=== PATIENT | female | born 1940 | race Caucasian/White ===

== ENCOUNTER → 2022-03-22 | Outpatient (CLI) | payer BC ==
[~2022-03-22] MED LIST: ACET325 PO; AMLODIPINE BESYL5 MG; BUME1 PO; DULOXETINE HCL60 M1 PO; ENBREL50 MG/1 M2 SQ; ESTRADIOL 2 MG; EUTHYROX100 MC1; EUTHYROX100 MCG PO; FOLIC ACID; FUROSEMIDE20 MG PO; GABA100 PO; GABAPENTIN CAP 100; IPRAT-ALBUT 0.5-3 ML INH; JANTOVEN2 MG PO; Klor-Con 1010 MEQ; LANOXIN125 MCG PO; LOSA25 PO; METO50ER PO; METOPROL SUC TAB 50M; Methotrexate2.5 MG PO; OXYCODONE-ACET1 EAC2 PO; POTA10T PO; Prednisone10 MG PO
[2022-03-22 15:22] LABS: BASOPHILS ABSOLUTE AUTO 0.13 K/mm3 (0.00-0.23); BASOPHILS PERCENT AUTO 1 % (0-2); EOSINOPHILS ABSOLUTE AUTO 0.36 K/mm3 (0.00-0.68); EOSINOPHILS PERCENT AUTO 3 % (0-6); Hematocrit 40.5 % (33.0-51.0); Hemoglobin 13.8 g/dL (11.5-16.0); IMMATURE GRAN ABSOLUTE AUTO 0.36 K/mm3 (0.00-0.10); IMMATURE GRAN PERCENT AUTO 3 % (0-1); LYMPHOCYTES ABSOLUTE AUTO 2.69 K/mm3 (0.84-5.20); LYMPHOCYTES PERCENT AUTO 21 % (21-46); MONOCYTES ABSOLUTE AUTO 1.12 K/mm3 (0.16-1.47); MONOCYTES PERCENT AUTO 9 % (4-13); Mean Corpuscular HGB 36.5 pg (26.0-34.0); Mean Corpuscular HGB Conc 34.1 g/dL (31.5-36.5); Mean Corpuscular Volume 107 fL (80-100); Mean Platelet Volume 11.2 fL (9.1-12.4); NEUTROPHILS ABSOLUTE AUTO 8.25 K/mm3 (1.96-9.15); NEUTROPHILS PERCENT AUTO 64 % (41-73); Platelet Count 262 K/mm3 (150-400); RDW Coefficient Variation 13.1 % (11.7-14.2); Red Blood Cell Count 3.78 M/mm3 (3.80-5.20); White Blood Cell Count 12.91 K/mm3 (4.00-11.30)
[2022-03-22 15:53] LABS: Albumin, Blood 3.1 g/dL (3.4-5.0); Albumin/Globulin Ratio 0.9 (0.8-1.8); Bilirubin, Total 0.5 mg/dL (0.1-1.0); Bun/Creatinine Ratio 20.2 (12.0-20.0); Calcium, Blood 8.9 mg/dL (8.5-10.1); Creatinine, Blood 0.84 mg/dL (0.40-1.00); Globulin, Blood 3.6 g/dL (2.2-4.0); Potassium, Blood 4.7 mmol/L (3.5-5.5); Total Protein, Blood 6.7 g/dL (6.4-8.2)
[2022-03-23 07:14] LABS: HBSAG SCREEN Negative (Negative); HCV AB 0.1 (0.0-0.9); HEP B CORE AB, TOT Negative (Negative)
== END | disposition home or self-care (01) ==
LOC: LAB SHORT 12:00 → LAB 12:00
PROVIDERS: Internal Medicine Rheumatology
DX: L40.50 Arthropathic psoriasis, unspecified (principal)
CPT/HCPCS: 80053; 85025; 85651

== ENCOUNTER 2023-08-29 15:52 | Inpatient (IN) | payer MEDICARE, BC, OTHER ==
[~2023-08-29] VITALS: Ht 157.5 cm; Wt 60.3 kg
[2023-08-29 16:23] LABS: BASOPHILS ABSOLUTE AUTO 0.08 K/mm3 (0.00-0.23); BASOPHILS PERCENT AUTO 1 % (0-2); EOSINOPHILS ABSOLUTE AUTO 0.09 K/mm3 (0.00-0.68); EOSINOPHILS PERCENT AUTO 1 % (0-6); Hematocrit 40.4 % (33.0-51.0); Hemoglobin 13.7 g/dL (11.5-16.0); IMMATURE GRAN ABSOLUTE AUTO 0.14 K/mm3 (0.00-0.10); IMMATURE GRAN PERCENT AUTO 1 % (0-1); LYMPHOCYTES ABSOLUTE AUTO 2.08 K/mm3 (0.84-5.20); LYMPHOCYTES PERCENT AUTO 19 % (21-46); MONOCYTES ABSOLUTE AUTO 0.99 K/mm3 (0.16-1.47); MONOCYTES PERCENT AUTO 9 % (4-13); Mean Corpuscular HGB 33.3 pg (26.0-34.0); Mean Corpuscular HGB Conc 33.9 g/dL (31.5-36.5); Mean Corpuscular Volume 98 fL (80-100); Mean Platelet Volume 11.2 fL (9.1-12.4); NEUTROPHILS PERCENT AUTO 70 % (41-73); Platelet Count 188 K/mm3 (150-400); RDW Coefficient Variation 14.7 % (11.7-14.2); RDW Standard Deviation 52.9 fL (35.1-46.3); Red Blood Cell Count 4.11 M/mm3 (3.80-5.20); White Blood Cell Count 11.08 K/mm3 (4.00-11.30)
[2023-08-29 17:12] LABS: Albumin, Blood 3.1 g/dL (3.4-5.0); Albumin/Globulin Ratio 0.7 (0.8-1.8); Bilirubin, Total 1.4 mg/dL (0.1-1.0); Bun/Creatinine Ratio 24.4 (12.0-20.0); Calcium, Blood 9.2 mg/dL (8.5-10.1); Creatinine, Blood 0.74 mg/dL (0.40-1.00); Globulin, Blood 4.7 g/dL (2.2-4.0); Potassium, Blood 4.2 mmol/L (3.5-5.5); Total Protein, Blood 7.8 g/dL (6.4-8.2)
[2023-08-29 19:19] LABS: Digoxin (Lanoxin) <0.06 ug/mL (0.80-2.00)
[2023-08-29 19:33] LABS: Base Excess Venous -7.8 mmol/L; Bicarbonate Venous 19.1 mmol/L (24.0-30.0); PCO2 Venous 27.5 mmHg (38-42)
[2023-08-29 20:30] VITALS: BP 114/101
[2023-08-29 21:00] VITALS: BP 123/96
[2023-08-29 23:20] VITALS: BP 130/98
[2023-08-30 03:29] VITALS: BP 110/99
[2023-08-30 03:46] LABS: Hematocrit 35.2 % (33.0-51.0); Hemoglobin 12.1 g/dL (11.5-16.0); Mean Corpuscular HGB 32.9 pg (26.0-34.0); Mean Corpuscular HGB Conc 34.4 g/dL (31.5-36.5); Mean Corpuscular Volume 96 fL (80-100); Mean Platelet Volume 11.3 fL (9.1-12.4); Platelet Count 179 K/mm3 (150-400); RDW Coefficient Variation 14.6 % (11.7-14.2); Red Blood Cell Count 3.68 M/mm3 (3.80-5.20); White Blood Cell Count 6.26 K/mm3 (4.00-11.30)
[2023-08-30 04:11] LABS: Bun/Creatinine Ratio 21.4 (12.0-20.0); Calcium, Blood 8.8 mg/dL (8.5-10.1); Creatinine, Blood 0.89 mg/dL (0.40-1.00); Magnesium, Blood 1.7 mg/dL (1.6-2.4); Potassium, Blood 3.1 mmol/L (3.5-5.5)
--- NOTE | 2023-08-30 04:55 | NUR ---
SHIFT SUMMARY ASSUMED CARE OF PT AT 1900. PT IS A/OX4. WITH TIMES OF FORGETFULNESS. HEART SOUNDS IRREGULAR AND TACHY. LUNG SOUNDS HAVE CRACKLES IN BASES. PT USED 2L NC PRNPT WAS A 1P SBA TO BSC. PT WAS VERY SOB WITH ACTIVITY AND HAD AUDIBLE WHEEZING AFTER TRANSFERS. BP HR MAINTAINED IN THE 120-160 RANGE ON ARRIVAL, HOSPITALIST NOTIFED AND HOME PO DILT STARTED. NO RESULTS. HOSPITALIST REVIEWED CASE AND IV PUCH ORDERED WITH DILT GTT. PT ONLY NEEDEED 5MG OF DILT FOR HR TO DECREASE TO 100-110S. PT BP SOFT AFTER DOSE BUT STABLE. NO OTHER COMPLAINTS FROM PT.
--- NOTE | 2023-08-30 17:27 | NUR ---
PT IS ALERT AND ORIENTED X4. SHE IS PLEASANT AND TALKATIVE. AT THE BEGINNING OF THE SHIFT, WHEEZING WAS NOTED THROUGHOUT UPPER LOBES. COURSE IN LOWER LOBES. PT IS A SBA TO THE BEDSIDE COMMODE. PT WAS GIVEN IV LASIX AND APPEARS TO HAVE MADE HER BREATHING BETTER. SHE IS SATTING>90% ON RA. SHE CALLS APPROPRIATELY. NO ACUTE CHANGES THIS SHIFT SHE HAS BEEN IN THE 90S-110S THROUGHOUT THE SHIFT.
[2023-08-30 20:23] VITALS: BP 95/70
--- NOTE | 2023-08-30 21:36 | NUR ---
AOS: PATIENT IS A/O X 4 ON RA, SPO2 >92% ON RA. TELE IN PLACE HR 90-110'S TO 120'S WITH EXERTION AFIB , PATIENT APPEARS AND ENDORSES TO BE IMPROVING NOTHING INFUSING. DENIES CHEST PAIN PRESSURE OR SOB. RECENT BREATHING TREATEMENT. NO CONCERNS FROM THIS RN EDEMA APPEARS TO BE IMPROVING STILL +2-3 NON-WEEPING. PATIENTHAS NO CONCERNS AT THIS TIME.
[2023-08-30 23:39] VITALS: BP 92/77
[2023-08-31 03:47] LABS: BASOPHILS ABSOLUTE AUTO 0.01 K/mm3 (0.00-0.23); BASOPHILS PERCENT AUTO 0 % (0-2); EOSINOPHILS PERCENT AUTO 0 % (0-6); Hematocrit 33.5 % (33.0-51.0); Hemoglobin 11.6 g/dL (11.5-16.0); IMMATURE GRAN ABSOLUTE AUTO 0.09 K/mm3 (0.00-0.10); IMMATURE GRAN PERCENT AUTO 1 % (0-1); LYMPHOCYTES ABSOLUTE AUTO 0.84 K/mm3 (0.84-5.20); LYMPHOCYTES PERCENT AUTO 7 % (21-46); MONOCYTES ABSOLUTE AUTO 1.09 K/mm3 (0.16-1.47); MONOCYTES PERCENT AUTO 9 % (4-13); Mean Corpuscular HGB 33.1 pg (26.0-34.0); Mean Corpuscular HGB Conc 34.6 g/dL (31.5-36.5); Mean Corpuscular Volume 96 fL (80-100); Mean Platelet Volume 11.4 fL (9.1-12.4); NEUTROPHILS ABSOLUTE AUTO 10.61 K/mm3 (1.96-9.15); NEUTROPHILS PERCENT AUTO 84 % (41-73); Platelet Count 179 K/mm3 (150-400); RDW Coefficient Variation 14.7 % (11.7-14.2); RDW Standard Deviation 50.8 fL (35.1-46.3); White Blood Cell Count 12.64 K/mm3 (4.00-11.30)
[2023-08-31 04:19] LABS: Albumin, Blood 3.3 g/dL (3.4-5.0); Albumin/Globulin Ratio 0.9 (0.8-1.8); Bilirubin, Total 1.1 mg/dL (0.1-1.0); Bun/Creatinine Ratio 27.3 (12.0-20.0); Calcium, Blood 8.7 mg/dL (8.5-10.1); Creatinine, Blood 1.1 mg/dL (0.40-1.00); Globulin, Blood 3.7 g/dL (2.2-4.0); Phosphorus, Blood 3.9 mg/dL (2.5-4.9); Potassium, Blood 2.8 mmol/L (3.5-5.5)
[2023-08-31 05:23] VITALS: BP 124/94
--- NOTE | 2023-08-31 05:59 | NUR ---
EOS: AM LABS LOOK WORSENED FROM PREVIOUS DRAWS. PATIENT IS ON RA SPO2 >94%. PATIENT ENDORSES MILD IMPROVEMENT. VSS HR IMPROVED <100, STILL AFIB PVC. BLOOD PRESSURE THIS AM WAS THE BEST OF THE NIGHT. DENIES CHEST PAIN PRESSURE AND SOB. A/O X 3-4, MILDLY DISORIENTED WHEN FIRST AWAKEN. POTASSIUM DID COME BACK LOW AT 2.8 CALL TO RESIDENT FOR REPLACEMENT. APPROPRIATE FOR MED STATUS, PATIENT WISHES TO DISCHARGE.
[2023-08-31 07:42] VITALS: BP 109/89
[2023-08-31] MEDS ORDERED: FURO40 PO (11:13)
[2023-08-31] MEDS ORDERED: XARELTO20 MG PO (11:15)
[2023-08-31] MEDS ORDERED: SPIR25 PO (11:16)
--- NOTE | 2023-08-31 13:08 | NUR ---
DISCHARGE: PT DISCHARGED AT 1230 FROM PCU 11. EDUCATION AND DISCHARGE INSTRUCTIONS PROVIDED TO PT AND SON. ALL BELONGINGS WITH PT.
== END 2023-08-31 12:23 | disposition home or self-care (01) | DRG 291 ==
LOC: ER 15:52 → PCU 18:09
PROVIDERS: Hospitalist; Nurse Practitioner Acute Care; Physician Assistant; ADMIT Student in an Organized Health Care Education/Training Program
PROC: B24BZZZ Ultrasonography of Heart with Aorta (ICD-10-PCS; principal; 2023-08-31)
DX: I11.0 Hypertensive heart disease with heart failure (principal); I50.33 Acute on chronic diastolic (congestive) heart failure; I48.21 Permanent atrial fibrillation; E87.20 Acidosis, unspecified; J44.9 Chronic obstructive pulmonary disease, unspecified; Z66 Do not resuscitate; F17.210 Nicotine dependence, cigarettes, uncomplicated; E87.6 Hypokalemia; E03.9 Hypothyroidism, unspecified; F32.9 Major depressive disorder, single episode, unspecified; G89.4 Chronic pain syndrome; I08.3 Combined rheumatic disorders of mitral, aortic and tricuspid valves; I27.20 Pulmonary hypertension, unspecified; Z88.2 Allergy status to sulfonamides; Z71.6 Tobacco abuse counseling; Z88.0 Allergy status to penicillin; Z79.890 Hormone replacement therapy; Z79.01 Long term (current) use of anticoagulants; Z89.422 Acquired absence of other left toe(s); Z89.421 Acquired absence of other right toe(s)
CPT/HCPCS: 36415; 71045; 80048; 80053; 80162; 82803; 83735; 83880; 84100; 84484; 85025; 85027; 93005; 93010; 93306; 94640; 94644; 94664; 94760; 94762; 96365; 96375; 97116; 97161; 99285-25; A9270; J0696; J1940; J2930; J7030